=== PATIENT | male | born 1995 | race Caucasian/White ===

== ENCOUNTER 2021-10-06 14:42 | Outpatient (REF) | payer SELFPAY ==
[2021-10-06 16:11] LABS: Influenza A PCR NEGATIVE (Negative); Influenza B PCR NEGATIVE (Negative); Resp Syncy Virus RNA Qual PCR NEGATIVE (Negative); SARS COV2 PCR INHOUSE NEGATIVE (Negative)
== END 2021-10-06 14:43 | disposition home or self-care (01) ==
LOC: HO.LNP 14:42
PROVIDERS: Visit Provider Physician Assistant
DX: Z20.822 Contact with and (suspected) exposure to COVID-19 (principal); R11.0 Nausea; R53.83 Other fatigue
CPT/HCPCS: 0241U

== ENCOUNTER 2023-01-14 20:04 | Emergency (ER) | payer SELFPAY ==
--- NOTE | 2023-01-14 | ECG_ITS ---
Test Reason : OVERDOSE Blood Pressure : / mmHG Vent. Rate : 086 BPM Atrial Rate : 086 BPM P-R Int : 170 ms QRS Dur : 096 ms QT Int : 362 ms P-R-T Axes : 065 045 036 degrees QTc Int : 433 ms Normal sinus rhythm Normal ECG No previous ECGs available Referred By: Generic ED Physician Electronically Signed By:Sanya Dan
[2023-01-14 20:16] VITALS: BP 137/90; BP 148/98; PULSE 89; PULSE 96; RESP 20; TEMP 36.6; O2SAT 100; O2SAT 95; BMI 22.5
[2023-01-14 21:23] LABS: MANUAL DIFF FLAG NO
[2023-01-14 21:37] LABS: Anion Gap 13 (12-20); Blood Urea Nitrogen 10 mg/dL (9-16); Calcium 9.2 mg/dL (8.4-10.2); Carbon Dioxide 25 mmol/L (22-29); Chloride 106 mmol/L (96-108); Creatinine Clr Calc Pharmacy 147.2; Estimated Glomerular Filt Rate > 60; Glucose Random 85 mg/dL (60-115); Sodium 140 mmol/L (135-145)
[2023-01-14 22:00] VITALS: BP 125/74; PULSE 77; RESP 16; TEMP 36.7; O2SAT 98
--- NOTE | 2023-01-14 22:19 | ED_ITS ---
HPI - Overdose General Chief Complaint: Overdose Stated Complaint: OD Time Seen by Provider: 01/14/23 21:04 Source: patient Mode of arrival: EMS History of Present Illness HPI Narrative: This is a 27-year-old male who denies any prior history of heroin use and states that he recently completely stopped marijuana in September/2022. Patient states that he had had good day playing ball and was walking home and decided he wanted to engage in something interesting and body Percocet. Patient states that he stepped out of the shower and then the next thing he knew he was surrounded by the police, ambulance, and his parents who found him unresponsive in the bathroom. Patient denies any SI/HI and states this was so stupid, such a stupid decision . According to the patient he received 8 mg of Narcan. He does not wish for detox. Related Data Allergies Allergy/AdvReac Type Severity Reaction Status Date / Time No Known Allergies Allergy Verified 10/06/21 13:28 Review of Systems Review of Systems: Pertinent positives and negatives as stated in HPI [facility] Social History Social History Patient Tobacco Use Status: Current someday Tobacco user Physical Exam Vital Signs: Vital Signs: Last Vital Signs Temp 98.0 F 01/14/23 22:00 Pulse 77 01/14/23 22:00 Resp 16 01/14/23 22:00 BP 125/74 01/14/23 22:00 Pulse Ox 98 01/14/23 22:00 O2 Del Method Room Air 01/14/23 22:00 BMI result Body Mass Index 22.5 VITAL SIGNS: Reviewed. GENERAL: Well developed, well nourished, in no acute distress. HEAD: Normocephalic/small contusion to the right forehead EYES: PERRLA, EOMI EARS: Ext canals without abnormality NOSE: Nares patent bilateral OROPHARYNX: no oral lesions noted, posterior pharynx clear NECK: Supple, no adenopathy LUNGS: Normal breath sounds. No adventitious sounds or accessory muscle use. SpO2<100> CARDIOVASCULAR: Regular rate and rhythm without noted murmurs ABDOMEN: Soft, non-tender, non-distended with bowel sounds. MUSCULOSKELETAL: No tenderness, deformities, or effusions noted on gross inspection. EXTREMITIES: No cyanosis, clubbing or edema. SKIN: Inspection of the skin reveals no rashes NEUROLOGIC: Alert and oriented x 4. Strength and sensation to light touch were grossly intact x 4. Medications Administered Discontinued Medications Generic Name Dose Route Start Last Admin Trade Name Adarsh PRN Reason Stop Dose Admin Naloxone HCl 4 mg 01/14/23 22:19 01/14/23 22:28 Naloxone Hcl Nasal Take Home 4 Mg [place] NOSTRILALT 01/14/23 22:20 4 mg ONCE ONE Administration Medical Decision Making Medical Decision Making [facility] Narrative: 27-year-old male with history and clinical presentation consistent with accidental overdose and denies any regular use of drugs. There are no focal deficits, patient does have a contusion at the right forehead. He is declining [facility] evaluation at this time. I reviewed all investigations and patient has a stress leukocytosis as there is no evidence of infection. Patient discharged in stable condition with home Narcan. Differential Diagnosis Please see the discussion above Lab Data Please see the discussion above 01/14/23 21:18 01/14/23 21:18 Labs: Lab Results 01/14/23 01/14/23 01/14/23 Range/Units 21:18 21:18 22:24 WBC 14.7 H (4.8-10.8) X10*3/uL RBC 4.51 L (4.60-5.80) X10*6/uL Hgb 13.3 L (14.0-18.0) g/dl Hct 39.3 L (42.0-52.0) % MCV 87.1 (80.0-98.0) fL MCH 29.5 (27.0-33.0) pg MCHC 33.8 (31.0-36.0) g/dl RDW 12.8 (11.0-16.0) % Plt Count 215 (160-400) X10*3/uL MPV 10.8 (9.4-12.4) fL Immature Gran % (Auto) 0.3 (0.0-0.4) % Neut % (Auto) 73.8 H (45-73) % Lymph % (Auto) 14.3 L (20-40) % [place] % (Auto) 9.4 (2-11) % Eos % (Auto) 1.6 (0-4) % Baso % (Auto) 0.6 (0-2) % Lymph # (Auto) 2.1 (1.2-4.9) X10*3/uL [place] # (Auto) 1.4 H (0.1-1.2) X10*3/uL Eos # (Auto) 0.2 (0.0-0.4) X10*3/uL Baso # (Auto) 0.1 (0.0-0.2) X10*3/uL Abs Immat Gran (auto) 0.05 H (0.00-0.03) X10*3/uL Absolute Neuts (auto) 10.8 H (2.0-8.3) x10*3/uL Absolute Nucleated RBC 0.000 (0.0-0.012) X10*3/uL Nucleated RBC % (auto) 0.0 (0.0-0.2) /100WBC Sodium 140 (135-145) mmol/L Potassium 4.0 (3.3-5.1) mmol/L Chloride 106 (96-108) mmol/L Carbon Dioxide 25 (22-29) mmol/L Anion Gap 13 (12-20) BUN 10 (9-16) mg/dL Creatinine 0.87 (0.5-1.4) mg/dL Estim Creat Clear Calc 147.2 Estimated GFR > 60 Random Glucose 85 (60-115) mg/dL Calcium 9.2 (8.4-10.2) mg/dL Urine Opiates Screen Not Detected (Not Detect) Urine Fentanyl Screen POSITIVE H (Not Detect) Ur Barbiturates Screen Not Detected (Not Detect) Ur Phencyclidine Scrn Not Detected (Not Detect) Ur Amphetamines Screen Not Detected (Not Detect) U Benzodiazepines Scrn Not Detected (Not Detect) Urine Cocaine Screen Not Detected (Not Detect) U Marijuana (THC) Screen Not Detected (Not Detect) Independent Interpretation I performed an independent interpretation of an: EKG Interpretation: A normal sinus rhythm, HR-86, no STEMI, SD/QRS/QTC is within normal limits. External Record Review External record reviewed: Prior outpatient labs Discharge Plan Discharge Clinical Impression: Accidental overdose Patient Disposition: Home, Self-Care Instructions: Adult Overdose (ED) Additional Instructions: Return to the ER if you need any help.
[2023-01-14] MEDS: Naloxone HCl Nasal TAKE HOME 4 MG SPRAY NOSTRILALT (22:28)
[2023-01-14 22:38] LABS: Basophils Absolute Auto 0.1 X10*3/uL (0.0-0.2); Basophils Percent Auto 0.6 % (0-2); Eosinophils Absolute Auto 0.2 X10*3/uL (0.0-0.4); Eosinophils Percent Auto 1.6 % (0-4); Hematocrit 39.3 % (42.0-52.0); Hemoglobin 13.3 g/dl (14.0-18.0); Imm Gran Abs Auto 0.05 X10*3/uL (0.00-0.03); Imm Gran Pct Auto 0.3 % (0.0-0.4); Lymphocytes Absolute Auto 2.1 X10*3/uL (1.2-4.9); Lymphocytes Percent Auto 14.3 % (20-40); Mean Corpuscular HGB Conc 33.8 g/dl (31.0-36.0); Mean Corpuscular Hemoglobin 29.5 pg (27.0-33.0); Mean Corpuscular Volume 87.1 fL (80.0-98.0); Mean Platelet Volume 10.8 fL (9.4-12.4); Monocytes Absolute Auto 1.4 X10*3/uL (0.1-1.2); Monocytes Percent Auto 9.4 % (2-11); Neutrophils Absolute Auto 10.8 x10*3/uL (2.0-8.3); Neutrophils Percent Auto 73.8 % (45-73); Platelet Count 215 X10*3/uL (160-400); Red Blood Count 4.51 X10*6/uL (4.60-5.80); Red Cell Distribution Width 12.8 % (11.0-16.0); White Blood Count 14.7 X10*3/uL (4.8-10.8)
[2023-01-14 22:46] LABS: Amphetamine Screen Urine Not Detected (Not Detect); Barbiturates, Urine Not Detected (Not Detect); Benzodiazepines Screen Urine Not Detected (Not Detect); Cannabinoid Screen Urine Not Detected (Not Detect); Cocaine Screen Urine Not Detected (Not Detect); Fentanyl, urine POSITIVE (Not Detect); Opiate Screen Urine Not Detected (Not Detect); Phencyclidine Screen Urine Not Detected (Not Detect)
--- NOTE | 2023-01-14 22:46 | PC.NURSE ---
Pt. alert and oriented, calm and cooperative. Pt. denies SI/HI.
[2023-01-14 23:28] VITALS: BP 111/66; PULSE 69; RESP 12; TEMP 36.4; O2SAT 96
== END 2023-01-15 00:17 | disposition home or self-care (01) ==
PROVIDERS: Emergency Provider Student in an Organized Health Care Education/Training Program
DX: R40.4 Transient alteration of awareness (principal); T40.411A Poisoning by fentanyl or fentanyl analogs, accidental (unintentional), initial encounter; S00.83XA Contusion of other part of head, initial encounter; W17.89XA Other fall from one level to another, initial encounter; F17.200 Nicotine dependence, unspecified, uncomplicated; Y93.89 Activity, other specified; Y92.019 Unspecified place in single-family (private) house as the place of occurrence of the external cause; Y99.9 Unspecified external cause status
CPT/HCPCS: 36415; 80048; 80307; 85025; 93005; 99283; 99284

== ENCOUNTER 2023-09-29 15:36 | Emergency (ER) | payer MEDICAID, SELFPAY ==
[2023-09-29 15:44] VITALS: BP 133/83; PULSE 69; RESP 16; TEMP 36.8; O2SAT 100; BMI 21.2
--- NOTE | 2023-09-29 16:20 | ED_ITS ---
HPI - General Adult General Chief complaint: Overdose Stated complaint: OVERDOSE,NARCAN GIVEN Time Seen by Provider: 09/29/23 15:52 History of Present Illness HPI narrative: 28 y/o M patient; PMH opioid use disorder; presents from home with concern for overdose responsive to narcan. Patient refused any further care from EMS. The patient denies any complaints. He denies interest in detox. He denies suicidal or homicidal ideation. He denies visual/auditory hallucinations. Patient denies any substance abuse. He states he was wide awake and let his mother and sister give him narcan because I wouldn't put my hands on a woman . When asked why his family would think he needed narcan, he says ask them . Attempts to call patient's mother Megan without success. Related Data Previous Rx's Medication Instructions Recorded naloxone 4 mg/actuation nasal 4 mg intranasal Q2M PRN opioid 09/29/23 spray (Narcan) overdose #2 ea Allergies Allergy/AdvReac Type Severity Reaction Status Date / Time No Known Allergies Allergy Verified 10/06/21 13:28 Review of Systems Review of Systems: Yes all other systems are reviewed and are negative [facility] Past Medical History Attestation statement: The following information was validated with the patient. Source: old records reviewed Social History Social History Patient Tobacco Use Status: Current someday Tobacco user Smoked in Last 30 Days: Yes Use of substances other than those prescribed or required for medical reasons: Yes Substance Use Type: Opiates Advance Directives: No Advance Directives Information Provided: No Physical Exam ED Vital Signs: Vital Signs - 24 hr 09/29/23 15:44 Temperature 98.2 F Pulse Rate 69 Respiratory Rate 16 Blood Pressure 133/83 Pulse Oximetry 100 Oxygen Delivery Method Room Air BMI result Body Mass Index 21.2 Patient is afebrile and hemodynamically stable Const General: cooperative and no acute distress HENMT Head: Yes atraumatic Eyes General: appearance normal, both eyes and all related structures Pupils: Equal, round and reactive pupils present EOM: EOMs intact bilaterally Neck Neck: Yes full ROM, Yes supple and No tender Chest Chest palpation & inspection: normal inspection of the chest Resp Effort & Inspection: normal respiratory effort and no respiratory distress Auscultation: clear to auscultation bilaterally Cardio Rate: regular rate Rhythm: regular rhythm Peripheral pulses: Peripheral pulses 2+ throughout GI Inspection: Yes normal to inspection and No distended Palpation (GI): Soft to palpation, not firm, nontender, no guarding and not rigid Auscultation: normal bowel sounds Neuro Cranial nerves: Yes Equal, round and reactive pupils present Course Course Course Narrative: Patient is afebrile and hemodynamically stable. Neurologically intact. Unable to obtain collateral history from family, but patient denies any complaints. No acute psychiatric concerns. Reevaluation(s) Reevaluation #1: Patient observed in the ED for over 2 hours without any periods of nausea/vomiting or apnea. He denies being a risk to himself or others. Will discharge to home with PCP follow up Return precautions given Rx Narcan sent to pharmacy Discharge Plan Discharge Clinical Impression: Drug overdose Patient Disposition: Home, Self-Care Instructions: Adult Overdose (ED) Additional Instructions: As we discussed, you were seen today after an overdose of drugs. You required narcan to bring you back to life. Highly recommend you stop using recreational drugs or you risk . Follow up with your PCP within 1 week to discuss your recent ED visit. A prescription for Narcan has been sent to your pharmacy. Prescriptions: New naloxone [Narcan] 4 mg/actuation spray,non-aerosol 4 mg intranasal Q2M PRN (Reason: opioid overdose) Qty: 2 0RF Rx Instructions: spray 1 dose into ONE nostril; alternate nostrils w each dose until help arrives
== END 2023-09-29 17:42 | disposition home or self-care (01) ==
PROVIDERS: Emergency Provider Emergency Medicine
DX: T50.901A Poisoning by unspecified drugs, medicaments and biological substances, accidental (unintentional), initial encounter (principal); R40.4 Transient alteration of awareness; Y92.009 Unspecified place in unspecified non-institutional (private) residence as the place of occurrence of the external cause
CPT/HCPCS: 99283; 99284

== ENCOUNTER 2025-09-01 09:33 | Outpatient (REF) | payer OTHER, SELFPAY ==
--- NOTE | ~2025-09-01 | XR_ITS ---
EXAMINATION: XR ABDOMEN 1 VIEW (KUB) HISTORY: R10.9 - Unspecified abdominal pain COMPARISON: There are no prior studies available for comparison. FINDINGS: Two supine views of the abdomen are submitted. The bowel gas pattern is unremarkable, without evidence of mechanical obstruction. There is a moderate amount of stool throughout the colon. There are phleboliths in the pelvis. There are no abnormal soft tissue masses. The bones are intact. XR/XR KUB IMPRESSION: Moderate amount of stool throughout the colon. Electronically signed by: Boby Saucedo MD 09/01/2025 11:41 AM EST
--- OUTSIDE RECORDS SUMMARY | 2025-09-01 15:10 | XMS_ITS | Data Portability ---
Author Organization [facility], [address] Address [address] [place] [address] Assessment No assessment recorded. Plan of Treatment Reminders Order Date Submit Date Provider Last Modified By Organization Details Last Modified Time Details Appointments None recorded. Lab rapid strep group A, throat 2022 023 [place] [facility], [address] [place] [address], [id number], 3 14:57:00 streptococc us group A, culture, throat 2022 023 [place] [facility], [address] [place] [address], [place], [address], 3 08:06:02 Referral None recorded. Procedures None recorded. Surgeries None recorded. Imaging None recorded. Medication Orders prednisone 20 mg tablet 2022 023 [facility]acy #[id number], [address] [place], [address], 3 14:58:24 fexofenadin e-pseudoeph edrine ER 180 mg-240 mg tablet,ext. release 24 hr 2022 023 [facility] #[id number], [address] [place], [address], 3 14:58:24 Patient TargetsNo targets recorded. Patient Instructions Encounter Date Encounter Id Patient Instructions Last Modified By Organization Details Last Modified Time 10/29/2022 [id number] Sinusitis is an infection of the lining of the sinus cavities in your head. Sinusitis often follows a cold. It causes pain and pressure in your head and face. In most cases, sinusitis gets better on its own in 1 to 2 weeks. But some mild symptoms may last for several weeks. Sometimes antibiotics are needed. if you are having problems. It's also a good idea to know your test results and keep a list of the medicines you take. How can you care for yourself at home? Take an ushn-bma-zzouaga pain medicine. Avoid Ibuprofen, Aleve and Aspirin if . If the doctor prescribed antibiotics, take them as directed. Do not stop taking them just because you feel better. You need to take the full course of antibiotics. Be careful when taking [id number] cold or influenza (flu) medicines and Tylenol at the same time. Many of these medicines have acetaminophen, which is Tylenol. Read the labels to make sure that you are not taking more than the recommended dose. Too much acetaminophen (Tylenol) can be harmful. Breathe warm, moist air from a steamy shower, a hot bath, or a sink filled with hot water. Avoid cold, dry air. Using a humidifier in your home may help. Follow the directions for cleaning the machine. Use saline (saltwater) nasal washes. This can help keep your nasal passages open and wash out mucus and bacteria. You can buy saline nose drops at a grocery store or drugstore. Or you can make your own at home by adding 1 teaspoon (5 millilitres) of salt and 1 teaspoon (5 millilitres) of baking soda to 2 cups (500 mL) of distilled water. If you make your own, fill a bulb syringe with the solution, insert the tip into your nostril, and squeeze gently. Blow your nose. Put a hot, wet towel or a warm gel pack on your face 3 or 4 times a day for 5 to 10 minutes each time. Try a decongestant nasal spray like oxymetazoline (Drixoral). Do not use it for more than 3 days in a row. Using it for more than 3 days can make your congestion worse. Not available 10/29/2022 14:58:12 Use over the counter medications for your sore throat. Basic lozenges (cough drops) or lozenges with an anesthetic (numbing agent) can be used as needed for quick results; look for the active ingredient, benzocaine, for numbing lozenges (like Cepacol Extra or Chloraseptic Max). Gargling with warm salt water can also relieve pain. Dissolve 1/4 to 1/2 teaspoon in 8-ounces of warm water; gargle and spit salt solution every hour, as needed. Sore throat pain can also be reduced by taking regular doses of acetaminophen (tylenol) or ibuprofen (Advil); if you are given a prescription of PREDNISONE, you may continue to take acetamminophen, but do not take ibuprofen or naprosyn. While this isn't quick, it can significantly reduce pain within an hour after taking. Please switch toothbrush after being on antibiotic for 24 hrs. You should follow-up with your PCP in days, or at any time if your condition does not improve or worsens. Any acute change should prompt a visit to the nearest Emergency Department. . Not available 10/29/2022 14:58:18 Reason for Referral None Reported. Results Created Date Observation Date Name Description Value Unit Range Abnormal Flag Note LastModifiedBy Organization Detail LastModifiedTime 10/29/19 23 11/01/2022 BETA STREP GP A CULTU RE beta strep gp A culture NEGATI VE Refer ence Range : Negat parish Not Available [facility] ([facility]) [address] [place], [address], 11/01/2022 14:07:09 10/29/1910/29/2022 rapid strep group A, throa t Unknown Analyte negati ve Not Available [address], [address], 10/29/2022 14:46:30 10/29/1910/29/2022 rapid strep group A, throa t Unknown Analyte Normal = Negati ve Not Available [address] [place] [address], [phone], 10/29/2022 14:46:30 Result Notes None recorded. Problems No Known Problems Medical Equipment None Reported. Allergies No known drug allergies Medications Name Sig Start Date Stop Date Status Note LastModified by Organization Details LastModified Time prednisone 20 mg tablet Take 2 tablets every day by oral route in the morning for 4 days. 023 active Not Available Not Available Not Avai lable fexofenadine -pseudoephed rine ER 180 mg-240 mg tablet,ext.r elease 24 hr Take 1 tablet every day by oral route in the evening for 10 days. 023 active Not Available Not Available Not Avai lable Vitals Date Recorded Body height Body mass index (BMI) Body weight Body temperature Oxygen saturation Heart rate Respiratory rate Systolic And Diastolic Provider Name and Address Organization Details Last Updated DateTime 3 190.5 cm 23.1 kg/m2 49812.5 9 g 97.1 [degF] 99 % 99 /min 16 /min 122/82 mm[Hg] SHILA SHANELL [facility] - [facility] 3 14:25:41 Social History Question Answer Notes LastModified by [address] Details LastModified Time Tobacco Smoking Status Former Smoker SHILA SHANELL infante, [place] - [facility] 10/29/2022 14:23:32 Have You Recently Traveled Abroad? No Information not available 10/29/2022 Sex: Unknown Functional Status Question Answer Note LastModified by [address] Details LastModified Time Do you use any illicit or recreational drugs? No [email or web address] Information not available 10/29/2022 Do you or have you ever used any other forms of tobacco or nicotine? No [email or web address] Information not available 10/29/2022 What is your level of alcohol consumption? Occasional [email or web address] Information not available 10/29/2022 Mental Status None recorded. Family History Relationship Description Onset Age of this Age Resolved Age Notes LastModified by Organization Details LastModified Time Father No current problems or disability [email or web address] Not available 10/29 14:22:44 Mother No current problems or disability [email or web address] Not available 10/29 14:22:44 Medical History No medical history recorded. Past Encounters Encounter ID Performer Location Encounter Start Date Encounter Closed Date Diagnosis/Indication Diagnosis SNOMED-CT Code Diagnosis ICD10 Code Diagnosis IMO Codes Diagnosis Note [id number] [address] [place] [address] 05/11/2015 13:05:22 05/11/2015 15:46:33 [id number] [address] [place] [address] 02/12/2021 11:21:37 02/12/2021 11:58:02 [id number] [address] [place] [address] 10/26/2018 13:55:17 10/26/2018 14:22:14 [id number] Servando Salvador [place] [address] [place] [address] 10/29/2022 12:41:50 10/29/2022 15:04:53 Pain in throat 364864997 R07.0 Acute sinusitis 98181638 J01.90 Health Concerns Section Related Observation LastModified by Organization Detai ls LastModified Time None Recorded Concern Status LastModified by Organization Details LastModified Time None Recorded Advance Directives Directive None Recorded Payers Insurance Date Sequence Insurance Name Policy Number Policy Romeo Covered Member ID Romeo Member ID Guarantor Name 10/29/2022 DO NOT USE Santino Bombard SELF SELF Santino Bombard 11/23/2022 PROMPT PAY Mi fiona Bombard 10/29/2022 1 [facility] Santino Bombard [id number] Santino Bombard 10/29/2022 [employer] INSURANCE [id number] Santino Bombard Santino Bombard Notes Date Note Type Note Provider Name and Address Organization Details Recorded Time 10/29/2022 text/html CongestionReport ed by Patientsore throat, nasal congestion with post nasal drip x 3 days. denies nay fever or fever with chills. no SOB or respiratory distress. Servando Salvador NP [address] [place], [address], [place] - [facility] 10/29/2022 15:15:07
== END 2025-09-01 09:34 | disposition home or self-care (01) ==
LOC: HO.HMGCX 09:33
PROVIDERS: Visit Provider Nurse Practitioner Family
DX: R10.9 Unspecified abdominal pain (principal); N50.819 Testicular pain, unspecified
CPT/HCPCS: 74018

== ENCOUNTER 2025-09-01 09:33 | Outpatient (AMB) | payer OTHER, SELFPAY ==
--- NOTE | 2025-09-01 10:26 | AM.OFFWIN_ITS ---
Intake Vital Signs 09/01/25 10:27 Height 6 ft 3 in Weight 170 lb BMI 21.2 BP 110/60 Blood Pressure Location Lt brachial Position Sitting Respiration 14 Pulse 64 Pulse Source Pulse Oximeter Temp 98.3 F Temp Source Oral Pulse Oximetry (%) 99 Oxygen Delivery Method Room Air Intake Visit Reasons: EP Abdominal pain Intake Note: pt presents with radiating pain from pubic region into lower abdomen for a few months, back and forth between diarrhea and constipation, body chills, fatigue, weakness for 3 weeks with newly developing right lower back pain starting last week- denies any urinary issues. Patient Tobacco Use Status: Current someday Tobacco user Allergies No Known Allergies Allergy (Verified 09/01/25 10:30) Medication List - Last Reconciled 09/01/25 by Michelle Flower NP metoclopramide HCl (Reglan) 5 mg PO Q6H Do you need a note to return to daycare/school/sports/work: Yes HPI HPI Comments History of Present Illness Details 29 y/o male presents to the walk-in clin ic with abdominal pain and cramping associated with alternating diarrhea and constipation for the past few weeks. Reports lower pelvic pain radiating to the testicles. States bilateral testicular tenderness. Denies urinary symptoms, nausea, vomiting, fevers, or chills. Admits to recreational use of Percocet (last taken Monday) and daily marijuana use. ON LICENSE OF [facility] Medical History (Updated 09/01/25 @ 11:55 by Michelle Flower NP) Testicular pain Abdominal pain Social History Patient Tobacco Use Status: Current someday Tobacco user Substance Use Type: Opiates Review of Systems Const All systems reviewed & are unremarkable except as noted in HPI and below Physical Exam Vital Signs: Last Vital Signs Temp 98.3 F 09/01/25 10:27 Pulse 64 09/01/25 10:27 Resp 14 09/01/25 10:27 BP 110/60 09/01/25 10:27 Pulse Ox 99 09/01/25 10:27 Oxygen Delivery Method Room Air 09/01/25 10:27 BMI result Body Mass Index 21.2 Const General: no acute distress Nutritional Appearance: thin Orientation/consciousness: patient oriented x3 GI Inspection: Yes normal to inspection Palpation (GI): Soft to palpation, not firm, nontender, no guarding, not rigid and No hepatosplenomegaly present Auscultation: normal bowel sounds Rectal Exam - Male: Yes deferred Penis: normal penis Scrotum: no ecchymosis, not edematous, not erythematous, testes descended bilaterally, no hydroceles, no inguinal hernias, no masses, no scrotal swelling and no varicoceles Testes: not enlarged, no testicular mass, no testicular swelling and testicular tenderness bilateral Skin General skin exam: no rashes or lesions noted Neuro General: patient oriented x3 Assessment & Plan Assessment & Plan (1) Abdominal pain: Code(s): R10.9 - Unspecified abdominal pain Plan: Abdominal pain with alternating constipation/diarrhea ? possible causes include irritable bowel syndrome (IBS), medication-induced bowel changes (opioids), or other GI pathology. Pelvic and testicular pain with tenderness ? could be referred pain from pelvic floor dysfunction, prostatitis, or less likely testicular pathology (no urinary symptoms or acute signs of infection reported). Ordered KUB to r/o SBO Ordered Reglan F/U with PCP. (2) Testicular pain: Code(s): N50.819 - Testicular pain, unspecified Plan: Testicular tenderness bilaterally; no swelling or erythema reported. Advised testicular ultrasound if tenderness persists or swelling develops. Orders: Orders XR KUB Today R10.9 - Unspecified abdominal pain Medications: New metoclopramide HCl (Reglan) 5 mg PO Q6H 30 tabs 0RF R10.9 - Unspecified abdominal pain Discontinued naloxone 4 mg/actuation (Narcan) spray 1 dose into ONE nostril; alternate nostrils w each dose until help arrives Discontinued Reason: Patient Completed Course 4 mg intranasal Q2M PRN 2 ea 0RF opioid overdose Coding Level of Care Code Est Pt Level 4 (95560) Diagnoses Abdominal pain R10.9 Testicular pain N50.819 Time Spent (min) 20
[2025-09-01 10:27] VITALS: BP 110/60; PULSE 64; RESP 14; TEMP 36.8; O2SAT 99; BMI 21.2
--- OUTSIDE RECORDS SUMMARY | 2025-09-01 10:56 | XMS_ITS | Clinical Summary ---
Author Organization [facility] Address [address] [place] [address] Phone Care Team Providers Care Pile Driving Supervisor Name Role Phone Unavailable Primary Care Provider Unavailabl e Immunizations Immunization Administration Dates Next Due DTP 05/24/1996,02/19/1996,1995 DTaP 5 05/23/2000,05/19/1997 H1N1 08/21/2009 HPV, Quadrivalent 04/16/2015,09/29/2014 Hep A, Adult 04/16/2015,09/29/2014 Hep B, ped/adol 08/10/1998,1995,1995 Hib (PRP-T) 11/11/1996, 6,02/20/1996, 996 IPV 05/15/2001,199 6,02/20/1996, 996 Influenza Split 08/29/2011 Influenza, injectable, quadrivalent 09/29/2014 Influenza, injectable, trivalent 07/15/2013,07/10 Influenza, intranasal, trivalent 08/28/2012,05/10 MMR 05/15/2001,11/11/1996 Meningococcal Conj (Menactra) MCV4P 09/29/2014,1 11/03/2007 Tdap 07/30/2008 Varicella 09/03/2008,02/11/1997 Family History Relation Name Status Comments Father Alive Father: Alive a nd well Mother Alive Mother: Alive a nd well Social History Tobacco Use Types Packs/Day Years Used Date Smoking Tobacco: Never Comments:Never smoker Sex and Gender Information Value Date Recorded Sex Assigned at Not on file Legal Sex Male 4:51 PM EDT Gender Identity Not on file Sexual Orientation Not on file Last Filed Vital Signs Vital Sign Reading Time Taken Comments Blood Pressure 111/61 04/16/2015 12:00 AM EDT Pulse 53 04/16/2015 12:00 AM EDT Temperature 36.6 C (97.8 F) 07/02/2013 12:00 AM EDT Respiratory Rate - - Oxygen Saturation - - Inhaled Oxygen Concentration - - Weight 78.3 kg (172 lb 9.6 oz) 04/16/2015 12:00 AM EDT Height 188.6 cm (6' 2.25 ) 04/16/2015 12:00 AM E DT Body Mass Index 22.01 04/16/2015 12:00 AM EDT Plan of Treatment Health Maintenance Due Date Last Done Comments HPV Vaccines (3 - Male 3-dose series) 07/09/2015 04/16/2015, 09/29/2014 DTaP,Tdap,and Td Vaccines (7 - Td or Tdap) 07/30/2018 07/30/2008, 05/23/2000, 05/19/1997, Additional history exists Influenza Vaccines (#1) 2025 09/29/20 14, 07/15/2013, 08/28/2012, Additional history exists COVID-19 Vaccine ( season) 2025 HIB Vaccines Completed 11/11/1996, 05/09, 02/20/1996, Additional history exists Hepatitis B Vaccines Completed 08/10/1998, 1995, 1995 IPV Vaccines Completed 05/15/2001, 05/09, 02/20/1996, Additional history exists MMR Vaccines Completed 05/15/2001, 11/11/1996 Varicella Vaccines Completed 09/03/2008, 02/11/1997 Meningococcal Vaccine Aged Out 09/29/2014, 008 No longer eligible based on patient's age to complete this topic Hepatitis A Vaccines Aged Out 04/16/2015, 09/29/20 14 No longer eligible based on patient's age to complete this topic Men B Vaccine Aged Out No longer elig ible based on patient's age to complete this topic Pneumococcal Vaccine Aged Out No long er eligible based on patient's age to complete this topic
--- OUTSIDE RECORDS SUMMARY | 2025-09-01 10:56 | XMS_ITS | Patient Health Record ---
Author Organization [facility] Address [address] [place] [address] Care Team Providers Care Crop Adjuster Name Role Phone [facility], Dermatology [facility] Care Provider [phone] [id number] Unavailable [phone] Reason For Referral No Information Plan Of Treatment No Information Insurance Providers Payer Name Payer Address Payer Phone Subscriber Number Group Number Insured Name Patient Relationship to Insured Coverage Start Date Coverage End Date [facility] [address] [address] [place] [address] [id number] Santino Morejon Self - patient is the insured 4
--- OUTSIDE RECORDS SUMMARY | 2025-09-01 10:56 | XMS_ITS | Encounter Summary ---
Author Organization [facility] Address [address] [place] [phone] Phone Care Team Providers Care Rn Or Lvn Name Role Phone Alex Patel MD Primary Care Provider Allie castillo Encounter Details Date Type Department Care Team (Late st Contact Info) Description 08/22/2015 Documentation [facility] Family Medicine [address] [place], [place] [phone] Family Medicine, Physician [address] [place] [address] Social History Tobacco Use Types Packs/Day Years Used Date Smoking Tobacco: Never Comments:Never smoker Sex and Gender Information Value Date Recorded Sex Assigned at Not on file Legal Sex Male 4:51 PM EDT Gender Identity Not on file Sexual Orientation Not on file documented as of this encounter Plan of Treatment Not on file documented as of this encounter Visit Diagnoses Not on filedocumented in this encounter Care Teams Rn Or Lvn Relationship Specialty Start Date End Date Alex Patel MD PCP - General 05/19/17 11/29/22 documented as of this encounter
--- OUTSIDE RECORDS SUMMARY | 2025-09-01 10:56 | XMS_ITS | Encounter Summary ---
Author Organization [facility] Address [address] [place] [phone] Phone Care Team Providers Care Obstetrics Teacher Name Role Phone Alex Patel MD Primary Care Provider Allie castillo Encounter Details Date Type Department Care Team (Late st Contact Info) Description 10/24/2013 Documentation [facility] Family Medicine [address] [place], [place] [phone] Family Medicine, Physician [address] [place], [place] [phone] Social History Tobacco Use Types Packs/Day Years Used Date Smoking Tobacco: Never Assessed Sex and Gender Information Value Date Recorded Sex Assigned at Not on file Legal Sex Male 4:51 PM EDT Gender Identity Not on file Sexual Orientation Not on file documented as of this encounter Plan of Treatment Not on file documented as of this encounter Visit Diagnoses Not on filedocumented in this encounter Care Teams Obstetrics Teacher Relationship Specialty Start Date End Date Alex Patel MD PCP - General 05/19/17 11/29/22 documented as of this encounter
--- OUTSIDE RECORDS SUMMARY | 2025-09-01 10:56 | XMS_ITS | Encounter Summary ---
Author Organization [facility] Address [address] [place] [phone] Phone Care Team Providers Care Miller Apprentice Name Role Phone Alex Patel MD Primary Care Provider Allie castillo Encounter Details Date Type Department Care Team (Late st Contact Info) Description 05/25/2017 Conversion Encounter [facility] - [address] [address] Social History Tobacco Use Types Packs/Day Years [...] on filedocumented in this encounter Care Teams Miller Apprentice Relationship Specialty Start Date End Date Alex Patel MD PCP - General 05/19/17 11/29/22 documented as of this encounter
== END 2025-09-01 11:29 | disposition home or self-care (01) ==
PROVIDERS: Visit Provider Nurse Practitioner Family
DX: R10.9 Unspecified abdominal pain (principal); N50.819 Testicular pain, unspecified

== ENCOUNTER → 2025-09-01 11:31 | Outpatient (BNV) | payer OTHER, SELFPAY | PROVIDERS: Visit Provider Radiology Diagnostic Radiology | DX: R10.9 Unspecified abdominal pain (principal) | CPT/HCPCS: 74018 ==